=== PATIENT | male | born 1985 | race Caucasian/White ===

== ENCOUNTER 2018-05-18 17:51 | Emergency (ER) | payer MEDICARE ==
[~2018-05-18] VITALS: Ht 182.9 cm; Wt 145.1 kg
[2018-05-18 17:58] VITALS: BP_SYST 165
[2018-05-18 18:25] VITALS: BP_SYST 156
== END 2018-05-18 18:25 | disposition home or self-care (01) ==
LOC: SED 17:51
DX: H66.92 Otitis media, unspecified, left ear (principal); R03.0 Elevated blood-pressure reading, without diagnosis of hypertension
CPT/HCPCS: 99283

== ENCOUNTER 2020-02-21 21:32 | Emergency (ER) | payer BC, MEDICARE ==
[~2020-02-21] VITALS: Ht 185.4 cm; Wt 172.4 kg
[2020-02-21 21:32] VITALS: BP_SYST 154
--- NOTE | 2020-02-21 21:32 | NUR ---
ER at bedside examining patient.
--- NOTE | 2020-02-21 21:32 | NUR ---
Lois lomaxmika in [facility] - 02/21/20 at 2227 by [email or web address] NEHEMIAH Morgan at bedside examining patient.
--- NOTE | 2020-02-21 21:32 | NUR ---
Patient to ER bed HW1 to gown for evaluation. Side rails up. Report given to CARISSA Amaya.
--- NOTE | 2020-02-21 21:44 | NUR ---
Pt brought in by self. Pt awake, alert, oriented x4. Pt states that he started having 5/10 pain in Lower R leg at approx 0100 this morning. Pt states that he has had cellulitis in the past and it was similar. Pt presented to ED with Redness, warmth to affected area. Pt denies chest pain, nausea, vomiting, diarrhea, shortness of breath. Pt denies any other medical complaint at this time. Pt resting in ed bed comfortably.
[2020-02-21] MEDS ORDERED: ACETAMINOPHEN 500 MG TABLET PO ONE (22:00)
[2020-02-21 22:21] VITALS: BP_SYST 154
--- NOTE | 2020-02-21 22:21 | NUR ---
Patient given written and verbal discharge instructions and verbalizes understanding. ER MD discussed with patient the results and treatment provided. Patient in stable condition. ID arm band removed. Rx of TYLENOL AND KEFLEX given. Patient educated on pain management and to follow up with PMD. Pain Scale 5/10. Opportunity for questions provided and answered. Medication side effect fact sheet provided.
== END 2020-02-21 22:21 | disposition home or self-care (01) ==
LOC: SED 21:32
DX: L03.115 Cellulitis of right lower limb (principal); F12.90 Cannabis use, unspecified, uncomplicated
CPT/HCPCS: 99283

== ENCOUNTER 2020-04-22 12:37 | Emergency (ER) | payer BC ==
[~2020-04-22] VITALS: Ht 185.4 cm; Wt 186.0 kg
[2020-04-22 12:58] VITALS: BP_SYST 156
[2020-04-22 13:02] VITALS: BP_SYST 156
== END 2020-04-22 13:02 | disposition home or self-care (01) ==
LOC: SED 12:37
DX: N39.0 Urinary tract infection, site not specified (principal); I10 Essential (primary) hypertension
CPT/HCPCS: 99283

== ENCOUNTER 2022-09-24 13:55 | Emergency (ER) | payer BC ==
[~2022-09-24] VITALS: Ht 185.4 cm; Wt 199.6 kg
[2022-09-24 14:06] VITALS: BP_SYST 175
--- NOTE | 2022-09-24 14:36 | NUR ---
Patient triaged and placed in waiting room. VSS and patient appears in no acute distress at this time. Accompanied by family, awaiting available bed, and MD notified of need for MSE.
[2022-09-24] MEDS ORDERED: LORazepam 1 MG TABLET PO ONE (14:45)
--- NOTE | 2022-09-24 15:15 | NUR ---
PT BROUGHT BACK TO [facility]AIR, WILL ASSUME CARE
--- NOTE | 2022-09-24 15:19 | NUR ---
PT STATES HE FEELS REALLY ANXIOUS, MEDICATED ORDERED.
[2022-09-24 15:24] LABS: BASOPHILS % (AUTO) 0.4 % (0.0-2.0); EOSINOPHILS # (AUTO) 0.1 K/uL (0.0-0.4); EOSINOPHILS % (AUTO) 1.4 % (0.0-4.0); HEMOGLOBIN 13.7 g/dL (14.0-18.0); LYMPHOCYTES % (AUTO) 22.2 % (20.5-51.5); MEAN CORPUSCULAR HEMOGLOBIN 29 pg (27-31); MEAN CORPUSCULAR HGB CONC 34 % (32-36); MEAN CORPUSCULAR VOLUME 84 fL (79.0-98.0); MONOCYTES # (AUTO) 0.7 K/uL (0.0-1.0); MONOCYTES % (AUTO) 7.4 % (1.7-9.3); NEUTROPHILS # (AUTO) 6.1 K/uL (1.8-7.7); NEUTROPHILS % (AUTO) 68.6 % (40.0-70.0); PLATELET COUNT (AUTO) 273 K/uL (130-430); RED BLOOD CELL COUNT(AUTO) 4.74 MIL/uL (4.2-6.2); WHITE BLOOD COUNT (AUTO) 8.9 K/uL (4.8-10.8)
[2022-09-24 15:44] LABS: CALCIUM 9.4 mg/dL (8.4-11.0); CREATININE 0.74 mg/dL (0.55-1.30)
[2022-09-24 15:49] LABS: ALBUMIN 3.6 g/dL (3.4-4.8); TOTAL BILIRUBIN 0.3 mg/dL (0.0-1.0)
--- NOTE | 2022-09-24 16:02 | NUR ---
PT STATES HE IS MUCH CALMER SINCE TAKING THE ATIVAN. PT FEELS GOOD
[2022-09-24] MEDS ORDERED: IBUP-1971 PO (16:22)
[2022-09-24] MEDS ORDERED: CLIN-22 PO (16:22)
--- NOTE | 2022-09-24 16:27 | NUR ---
Patient given written and verbal discharge instructions and verbalizes understanding. ER MD discussed with patient the results and treatment provided. Patient in stable condition. ID arm band removed.. Rx of CLINDAMYCIN, IBUPROFEN given. Patient educated on pain management and to follow up with PMD. Pain Scale 0/10. Opportunity for questions provided and answered. Medication side effect fact sheet provided.
== END 2022-09-24 16:27 | disposition home or self-care (01) ==
LOC: SED 13:55
DX: L03.115 Cellulitis of right lower limb (principal); I10 Essential (primary) hypertension; R22.41 Localized swelling, mass and lump, right lower limb; Z79.899 Other long term (current) drug therapy
CPT/HCPCS: 36415; 73590-TC; 80053; 83605; 85025; 86140; 99284

== ENCOUNTER 2023-08-03 17:58 | Emergency (ER) | payer BC ==
[~2023-08-03] VITALS: Ht 185.4 cm; Wt 186.0 kg
[2023-08-03 17:58] VITALS: BP_SYST 184; PULSE 101; RESP 18; TEMP 97.8; O2SAT 99
[~2023-08-03 17:58] MED LIST: CLIN-22 PO; IBUP-1971 PO
[2023-08-03] MEDS ORDERED: PEG15DRO12 LEFT EYE (18:22)
[2023-08-03] MEDS ORDERED: VALA10002 PO (18:22)
[2023-08-03] MEDS ORDERED: PRED20TA PO (18:22)
[2023-08-03] MEDS ORDERED: MINE3.5O4 LEFT EYE (18:22)
[2023-08-03] MEDS ORDERED: AMLO5TAB4 PO (18:22)
[2023-08-03 18:46] VITALS: BP_SYST 184; PULSE 101; RESP 18; TEMP 97.8; O2SAT 99
== END 2023-08-03 18:41 | disposition home or self-care (01) ==
LOC: SED 17:58
DX: G51.0 Bell's palsy (principal); H92.02 Otalgia, left ear; I10 Essential (primary) hypertension; Z79.899 Other long term (current) drug therapy
CPT/HCPCS: 99283

== ENCOUNTER 2024-05-07 23:15 | Emergency (ER) | payer BC ==
[~2024-05-07] VITALS: Ht 185.4 cm; Wt 183.7 kg
[~2024-05-07 23:15] MED LIST changes: +AMLO5TAB4 PO; +MINE3.5O4 LEFT EYE; +PEG15DRO12 LEFT EYE; +PRED20TA PO; +VALA10002 PO
[2024-05-07 23:23] VITALS: BP_SYST 161; PULSE 93; RESP 20; TEMP 97.3; O2SAT 98
[2024-05-08 00:46] VITALS: BP_SYST 139; PULSE 93; RESP 16; TEMP 98.4; O2SAT 98
== END 2024-05-08 00:46 | disposition home or self-care (01) ==
LOC: SED 23:15
DX: R00.2 Palpitations (principal); F41.9 Anxiety disorder, unspecified; I10 Essential (primary) hypertension; Z79.899 Other long term (current) drug therapy; Z79.2 Long term (current) use of antibiotics
CPT/HCPCS: 93005; 99283